=== PATIENT | female | born 2000 | race Caucasian/White ===

== ENCOUNTER 2021-06-02 05:27 | Emergency (ER) | payer MEDICAID, SELFPAY ==
--- NOTE | ~2021-06-02 | US_ITS ---
EXAMINATION: US FIRST TRIMESTER CLINICAL INFORMATION: Ectopic LMP: April 18, 2021 Beta-hCG: Unknown COMPARISON: None available. TECHNIQUE: Transabdominal imaging was performed. FINDINGS: No intrauterine gestational sac found. Endometrial thickness is 4 mm. OVARIES: Right: Normal Left: Normal FREE FLUID: None OTHER FINDINGS: None US/US OB <= 14 weeks fetus IMPRESSION: No intrauterine gestational sac found. In the right clinical setting CANNOT RULE OUT ECTOPIC. No adnexal mass or cyst found. (Referring physician staff is being called, to be alerted of the above findings and recommendations.) [place]
[2021-06-02 05:41] VITALS: BP 116/62; PULSE 115; RESP 16; TEMP 36.7; O2SAT 100
[2021-06-02 06:10] VITALS: BP 121/77; PULSE 104; RESP 16; O2SAT 99
--- NOTE | 2021-06-02 06:18 | ED_ITS ---
HPI - Female Genitourinary General Chief complaint: Urogenital-Female <Anamaria Ortiz MD - Last Filed: 06/02/21 06:56> Stated complaint: miscarriage <Anamaria Ortiz MD - Last Filed: 06/02/21 06:56> Time Seen by Provider: 06/02/21 06:15 <Anamaria Ortiz MD - Last Filed: 06/02/21 06:56> History of Present Illness HPI Narrative: Patient is a 20-year-old female last menstrual period was April 18. Presents today with having vaginal bleeding for the last 3 days. Soaking 2 pads in the last 24 hours. Minimal cramping. Patient is unsure of her blood type. 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 No fever no chills. No cough no congestion or upper respiratory symptoms. No diaphoresis. <Anamaria Ortiz MD - Last Filed: 06/02/21 06:56> Related Data Home medications: Previous Rx's Medication Instructions Recorded cefuroxime axetil 500 mg tablet 500 mg PO BID 10 Days #20 tab 06/02/21 ondansetron 4 mg disintegrating 4 mg PO Q8H PRN #20 tab 06/02/21 tablet <Anamaria Ortiz MD - Last Filed: 06/02/21 06:56> Allergies/Adverse reactions: Allergies Allergy/AdvReac Type Severity Reaction Status Date / Time No Known Allergies Allergy Verified 06/02/21 05:48 <Anamaria Ortiz MD - Last Filed: 06/02/21 06:56> Review of Systems Review of Systems: No fever no chills no chest pain or shortness of breath positive lower abdominal cramping <Anamaria Ortiz MD - Last Filed: 06/02/21 06:56> Yes all other systems are reviewed and are negative <Anamaria Ortiz MD - Last Filed: 06/02/21 06:56> [facility] Past Medical History Attestation statement: The following information was validated with the patient. <Anamaria Ortiz MD - Last Filed: 06/02/21 06:56> Social History Social History: Social History Alcohol intake: never Patient Tobacco Use Status: Never used Tobacco Use of substances other than those prescribed or required for medical reasons: No Advance Directives: No Advance Directives Information Provided: Yes Patient : Yes <Anamaria Ortiz MD - Last Filed: 06/02/21 06:56> Physical Exam Vital Signs: Vital Signs: Last Vital Signs Temp 99.2 F 06/02/21 09:35 Pulse 106 H 06/02/21 09:25 Resp 16 06/02/21 09:25 BP 108/58 L 06/02/21 09:25 Pulse Ox 98 06/02/21 09:25 BMI result Body Mass Index 20.0 Appearance: Alert. Oriented X3. No acute distress. Eyes: Pupils equal, round and reactive to light. ENT: Pharynx normal. Neck: Normal inspection. Neck supple. No lymph nodes noted. No crepitus CVS: Normal heart rate and rhythm. Pulses normal. Normal S1 and S2 Respiratory: No respiratory distress. Breath sounds normal. No Wheezing. No ra les Abdomen: Soft and nontender. No rigidity. No distention. good BS x4 Pelvic exam done with nursing present. There is small amount of blood in the vaginal vault. The cervical os was closed. Nontender. There is no adnexal tenderness elicited on palpation Skin: Skin warm and dry. Normal skin color. Normal skin turgor. Extremities: No lower extremity edema. Neurovascular intact to all extremities. No Lacerations. No Rash Neuro: Oriented X 3. No motor deficit. No sensory deficit. Moving all extermities. No slurred speech <Anamaria Ortiz MD - Last Filed: 06/02/21 06:56> Vital Signs: Last Vital Signs Temp 99.2 F 06/02/21 09:35 Pulse 106 H 06/02/21 09:25 Resp 16 06/02/21 09:25 BP 108/58 L 06/02/21 09:25 Pulse Ox 98 06/02/21 09:25 BMI result Body Mass Index 20.0 <Chastity York DO - Last Filed: 06/02/21 10:08> Course Course Course Narrative: sign out at 7am - patient with low grade temp per RN - tylenol, COVID/flu ordered - cultures, lactic acid and IV ceftriaxone for UTI ordered at this time 727am swabs ordered as well Rh negative - rhogam ordered VS stable, lactic acid negative, able to tolerate PO - can be managed as outpatient [facility] only 145 given rhogam patient feels safe and stable for DC - went over precautions to return <Chastity York DO - Last Filed: 06/02/21 10:08> MDM - Female Genitourinary Lab Data Result diagrams: : 06/02/21 06:43 06/02/21 06:43 <Anamaria Ortiz MD - Last Filed: 06/02/21 06:56> Labs: Lab Results 06/02/21 06/02/21 06/02/21 Range/Units 06:43 06:43 06:43 WBC 10.7 (4.8-10.8) X10*3/uL RBC 4.71 (4.20-5.50) X10*6/uL Hgb 13.2 (12.0-16.0) g/dl Hct 39.9 (37.0-47.0) % MCV 84.7 (80.0-98.0) fL MCH 28.0 (27.0-33.0) pg MCHC 33.1 (31.0-35.0) g/dl RDW 13.6 (11.0-16.0) % Plt Count 445 H (160-400) X10*3/uL MPV 8.5 L (9.4-12.3) fL Immature Gran % (Auto) 0.3 (0.0-0.4) % Neut % (Auto) 87.9 H (45-73) % Lymph % (Auto) 6.1 L (20-40) % [place] % (Auto) 5.4 (2-11) % Eos % (Auto) 0.2 (0-4) % Baso % (Auto) 0.1 (0-2) % Lymph # (Auto) 0.7 L (1.2-4.9) X10*3/uL [place] # (Auto) 0.6 (0.1-1.2) X10*3/uL Eos # (Auto) 0.0 (0.0-0.4) X10*3/uL Baso # (Auto) 0.0 (0.0-0.2) X10*3/uL Abs Immat Gran (auto) 0.03 (0.00-0.03) X10*3/uL Absolute Neuts (auto) 9.5 H (2.0-8.3) x10*3/uL Absolute Nucleated RBC 0.000 (0.0-0.012) X10*3/uL Nucleated RBC % (auto) 0.0 (0.0-0.2) /100WBC Sodium 138 (135-145) mmol/L Potassium 4.0 (3.3-5.1) mmol/L Chloride 105 (96-108) mmol/L Carbon Dioxide 23 (22-29) mmol/L Anion Gap 14 (12-20) BUN 11 (9-16) mg/dL Creatinine 0.73 (0.5-1.4) mg/dL Estim Creat Clear Calc 83.1 Estimated GFR > 60 Random Glucose 109 (60-115) mg/dL Lactic Acid (0.5-2.0) mmol/L Calcium 10.2 (8.4-10.2) mg/dL Total Bilirubin 1.1 H (0.0-1.0) mg/dL AST 19 (5-31) U/L ALT 15 (0-31) U/L Alkaline Phosphatase 70 (39-117) U/L Total Protein 8.9 H (6.5-8.0) g/dL Albumin 5.3 H (3.5-5.0) g/dL Lipase 22 (8-78) U/L Beta HCG, Quant 145 mIU/mL Urine Color Urine Appearance Urine pH (5.0-8.0) Ur Specific [place] (1.005-1.025) Urine Protein (NEG-TRACE) MG/DL Urine Glucose (UA) (NEG) MG/DL Urine Ketones (NEG) MG/DL Urine Blood (NEG) Urine Nitrite (NEG) Ur Leukocyte Esterase (NEG) Urine RBC (0) /HPF Urine WBC (0-4) /HPF Ur Squamous Epith Cells /LPF Urine Bacteria /LPF COVID-19 (RENE) (Negative) COVID-19 Clin Com Influenza Type A (LI) (Negative) Influenza Type B (LI) (Negative) Influenza A & B Note Blood Type O Negative 06/02/21 06/02/21 06/02/21 Range/Units 06:53 07:37 07:37 WBC (4.8-10.8) X10*3/uL RBC (4.20-5.50) X10*6/uL Hgb (12.0-16.0) g/dl Hct (37.0-47.0) % MCV (80.0-98.0) fL MCH (27.0-33.0) pg MCHC (31.0-35.0) g/dl RDW (11.0-16.0) % Plt Count (160-400) X10*3/uL MPV (9.4-12.3) fL Immature Gran % (Auto) (0.0-0.4) % Neut % (Auto) (45-73) % Lymph % (Auto) (20-40) % [place] % (Auto) (2-11) % Eos % (Auto) (0-4) % Baso % (Auto) (0-2) % Lymph # (Auto) (1.2-4.9) X10*3/uL [place] # (Auto) (0.1-1.2) X10*3/uL Eos # (Auto) (0.0-0.4) X10*3/uL Baso # (Auto) (0.0-0.2) X10*3/uL Abs Immat Gran (auto) (0.00-0.03) X10*3/uL Absolute Neuts (auto) (2.0-8.3) x10*3/uL Absolute Nucleated RBC (0.0-0.012) X10*3/uL Nucleated RBC % (auto) (0.0-0.2) /100WBC Sodium (135-145) mmol/L Potassium (3.3-5.1) mmol/L Chloride (96-108) mmol/L Carbon Dioxide (22-29) mmol/L Anion Gap (12-20) BUN (9-16) mg/dL Creatinine (0.5-1.4) mg/dL Estim Creat Clear Calc Estimated GFR Random Glucose (60-115) mg/dL Lactic Acid (0.5-2.0) mmol/L Calcium (8.4-10.2) mg/dL Total Bilirubin (0.0-1.0) mg/dL AST (5-31) U/L ALT (0-31) U/L Alkaline Phosphatase (39-117) U/L Total Protein (6.5-8.0) g/dL Albumin (3.5-5.0) g/dL Lipase (8-78) U/L Beta HCG, Quant mIU/mL Urine Color RED A Urine Appearance TURBID Urine pH 6.5 (5.0-8.0) Ur Specific [place] 1.025 (1.005-1.025) Urine Protein 3+ H (NEG-TRACE) MG/DL Urine Glucose (UA) NEG (NEG) MG/DL Urine Ketones 5 (NEG) MG/DL Urine Blood 3+ H (NEG) Urine Nitrite POS H (NEG) Ur Leukocyte Esterase TRACE H (NEG) Urine RBC TNTC H (0) /HPF Urine WBC 5-9 H (0-4) /HPF Ur Squamous Epith Cells TRACE /LPF Urine Bacteria TRACE /LPF COVID-19 (RENE) Negative (Negative) COVID-19 Clin Com See Note Influenza Type A (LI) Negative (Negative) Influenza Type B (LI) Negative (Negative) Influenza A & B Note See Note Blood Type 06/02/21 Range/Units 07:46 WBC (4.8-10.8) X10*3/uL RBC (4.20-5.50) X10*6/uL Hgb (12.0-16.0) g/dl Hct (37.0-47.0) % MCV (80.0-98.0) fL MCH (27.0-33.0) pg MCHC (31.0-35.0) g/dl RDW (11.0-16.0) % Plt Count (160-400) X10*3/uL MPV (9.4-12.3) fL Immature Gran % (Auto) (0.0-0.4) % Neut % (Auto) (45-73) % Lymph % (Auto) (20-40) % [place] % (Auto) (2-11) % Eos % (Auto) (0-4) % Baso % (Auto) (0-2) % Lymph # (Auto) (1.2-4.9) X10*3/uL [place] # (Auto) (0.1-1.2) X10*3/uL Eos # (Auto) (0.0-0.4) X10*3/uL Baso # (Auto) (0.0-0.2) X10*3/uL Abs Immat Gran (auto) (0.00-0.03) X10*3/uL Absolute Neuts (auto) (2.0-8.3) x10*3/uL Absolute Nucleated RBC (0.0-0.012) X10*3/uL Nucleated RBC % (auto) (0.0-0.2) /100WBC Sodium (135-145) mmol/L Potassium (3.3-5.1) mmol/L Chloride (96-108) mmol/L Carbon Dioxide (22-29) mmol/L Anion Gap (12-20) BUN (9-16) mg/dL Creatinine (0.5-1.4) mg/dL Estim Creat Clear Calc Estimated GFR Random Glucose (60-115) mg/dL Lactic Acid 1.0 (0.5-2.0) mmol/L Calcium (8.4-10.2) mg/dL Total Bilirubin (0.0-1.0) mg/dL AST (5-31) U/L ALT (0-31) U/L Alkaline Phosphatase (39-117) U/L Total Protein (6.5-8.0) g/dL Albumin (3.5-5.0) g/dL Lipase (8-78) U/L Beta HCG, Quant mIU/mL Urine Color Urine Appearance Urine pH (5.0-8.0) Ur Specific [place] (1.005-1.025) Urine Protein (NEG-TRACE) MG/DL Urine Glucose (UA) (NEG) MG/DL Urine Ketones (NEG) MG/DL Urine Blood (NEG) Urine Nitrite (NEG) Ur Leukocyte Esterase (NEG) Urine RBC (0) /HPF Urine WBC (0-4) /HPF Ur Squamous Epith Cells /LPF Urine Bacteria /LPF COVID-19 (RENE) (Negative) COVID-19 Clin Com Influenza Type A (LI) (Negative) Influenza Type B (LI) (Negative) Influenza A & B Note Blood Type <Anamaria Ortiz MD - Last Filed: 06/02/21 06:56> Lab Results 06/02/21 06/02/21 06/02/21 Range/Units 06:43 06:43 06:43 WBC 10.7 (4.8-10.8) X10*3/uL RBC 4.71 (4.20-5.50) X10*6/uL Hgb 13.2 (12.0-16.0) g/dl Hct 39.9 (37.0-47.0) % MCV 84.7 (80.0-98.0) fL MCH 28.0 (27.0-33.0) pg MCHC 33.1 (31.0-35.0) g/dl RDW 13.6 (11.0-16.0) % Plt Count 445 H (160-400) X10*3/uL MPV 8.5 L (9.4-12.3) fL Immature Gran % (Auto) 0.3 (0.0-0.4) % Neut % (Auto) 87.9 H (45-73) % Lymph % (Auto) 6.1 L (20-40) % [place] % (Auto) 5.4 (2-11) % Eos % (Auto) 0.2 (0-4) % Baso % (Auto) 0.1 (0-2) % Lymph # (Auto) 0.7 L (1.2-4.9) X10*3/uL [place] # (Auto) 0.6 (0.1-1.2) X10*3/uL Eos # (Auto) 0.0 (0.0-0.4) X10*3/uL Baso # (Auto) 0.0 (0.0-0.2) X10*3/uL Abs Immat Gran (auto) 0.03 (0.00-0.03) X10*3/uL Absolute Neuts (auto) 9.5 H (2.0-8.3) x10*3/uL Absolute Nucleated RBC 0.000 (0.0-0.012) X10*3/uL Nucleated RBC % (auto) 0.0 (0.0-0.2) /100WBC Sodium 138 (135-145) mmol/L Potassium 4.0 (3.3-5.1) mmol/L Chloride 105 (96-108) mmol/L Carbon Dioxide 23 (22-29) mmol/L Anion Gap 14 (12-20) BUN 11 (9-16) mg/dL Creatinine 0.73 (0.5-1.4) mg/dL Estim Creat Clear Calc 83.1 Estimated GFR > 60 Random Glucose 109 (60-115) mg/dL Lactic Acid (0.5-2.0) mmol/L Calcium 10.2 (8.4-10.2) mg/dL Total Bilirubin 1.1 H (0.0-1.0) mg/dL AST 19 (5-31) U/L ALT 15 (0-31) U/L Alkaline Phosphatase 70 (39-117) U/L Total Protein 8.9 H (6.5-8.0) g/dL Albumin 5.3 H (3.5-5.0) g/dL Lipase 22 (8-78) U/L Beta HCG, Quant 145 mIU/mL Urine Color Urine Appearance Urine pH (5.0-8.0) Ur Specific [place] (1.005-1.025) Urine Protein (NEG-TRACE) MG/DL Urine Glucose (UA) (NEG) MG/DL Urine Ketones (NEG) MG/DL Urine Blood (NEG) Urine Nitrite (NEG) Ur Leukocyte Esterase (NEG) Urine RBC (0) /HPF Urine WBC (0-4) /HPF Ur Squamous Epith Cells /LPF Urine Bacteria /LPF COVID-19 (RENE) (Negative) COVID-19 Clin Com Influenza Type A (LI) (Negative) Influenza Type B (LI) (Negative) Influenza A & B Note Blood Type O Negative 06/02/21 06/02/21 06/02/21 Range/Units 06:53 07:37 07:37 WBC (4.8-10.8) X10*3/uL RBC (4.20-5.50) X10*6/uL Hgb (12.0-16.0) g/dl Hct (37.0-47.0) % MCV (80.0-98.0) fL MCH (27.0-33.0) pg MCHC (31.0-35.0) g/dl RDW (11.0-16.0) % Plt Count (160-400) X10*3/uL MPV (9.4-12.3) fL Immature Gran % (Auto) (0.0-0.4) % Neut % (Auto) (45-73) % Lymph % (Auto) (20-40) % [place] % (Auto) (2-11) % Eos % (Auto) (0-4) % Baso % (Auto) (0-2) % Lymph # (Auto) (1.2-4.9) X10*3/uL [place] # (Auto) (0.1-1.2) X10*3/uL Eos # (Auto) (0.0-0.4) X10*3/uL Baso # (Auto) (0.0-0.2) X10*3/uL Abs Immat Gran (auto) (0.00-0.03) X10*3/uL Absolute Neuts (auto) (2.0-8.3) x10*3/uL Absolute Nucleated RBC (0.0-0.012) X10*3/uL Nucleated RBC % (auto) (0.0-0.2) /100WBC Sodium (135-145) mmol/L Potassium (3.3-5.1) mmol/L Chloride (96-108) mmol/L Carbon Dioxide (22-29) mmol/L Anion Gap (12-20) BUN (9-16) mg/dL Creatinine (0.5-1.4) mg/dL Estim Creat Clear Calc Estimated GFR Random Glucose (60-115) mg/dL Lactic Acid (0.5-2.0) mmol/L Calcium (8.4-10.2) mg/dL Total Bilirubin (0.0-1.0) mg/dL AST (5-31) U/L ALT (0-31) U/L Alkaline Phosphatase (39-117) U/L Total Protein (6.5-8.0) g/dL Albumin (3.5-5.0) g/dL Lipase (8-78) U/L Beta HCG, Quant mIU/mL Urine Color RED A Urine Appearance TURBID Urine pH 6.5 (5.0-8.0) Ur Specific [place] 1.025 (1.005-1.025) Urine Protein 3+ H (NEG-TRACE) MG/DL Urine Glucose (UA) NEG (NEG) MG/DL Urine Ketones 5 (NEG) MG/DL Urine Blood 3+ H (NEG) Urine Nitrite POS H (NEG) Ur Leukocyte Esterase TRACE H (NEG) Urine RBC TNTC H (0) /HPF Urine WBC 5-9 H (0-4) /HPF Ur Squamous Epith Cells TRACE /LPF Urine Bacteria TRACE /LPF COVID-19 (RENE) Negative (Negative) COVID-19 Clin Com See Note Influenza Type A (LI) Negative (Negative) Influenza Type B (LI) Negative (Negative) Influenza A & B Note See Note Blood Type 06/02/21 Range/Units 07:46 WBC (4.8-10.8) X10*3/uL RBC (4.20-5.50) X10*6/uL Hgb (12.0-16.0) g/dl Hct (37.0-47.0) % MCV (80.0-98.0) fL MCH (27.0-33.0) pg MCHC (31.0-35.0) g/dl RDW (11.0-16.0) % Plt Count (160-400) X10*3/uL MPV (9.4-12.3) fL Immature Gran % (Auto) (0.0-0.4) % Neut % (Auto) (45-73) % Lymph % (Auto) (20-40) % [place] % (Auto) (2-11) % Eos % (Auto) (0-4) % Baso % (Auto) (0-2) % Lymph # (Auto) (1.2-4.9) X10*3/uL [place] # (Auto) (0.1-1.2) X10*3/uL Eos # (Auto) (0.0-0.4) X10*3/uL Baso # (Auto) (0.0-0.2) X10*3/uL Abs Immat Gran (auto) (0.00-0.03) X10*3/uL Absolute Neuts (auto) (2.0-8.3) x10*3/uL Absolute Nucleated RBC (0.0-0.012) X10*3/uL Nucleated RBC % (auto) (0.0-0.2) /100WBC Sodium (135-145) mmol/L Potassium (3.3-5.1) mmol/L Chloride (96-108) mmol/L Carbon Dioxide (22-29) mmol/L Anion Gap (12-20) BUN (9-16) mg/dL Creatinine (0.5-1.4) mg/dL Estim Creat Clear Calc Estimated GFR Random Glucose (60-115) mg/dL Lactic Acid 1.0 (0.5-2.0) mmol/L Calcium (8.4-10.2) mg/dL Total Bilirubin (0.0-1.0) mg/dL AST (5-31) U/L ALT (0-31) U/L Alkaline Phosphatase (39-117) U/L Total Protein (6.5-8.0) g/dL Albumin (3.5-5.0) g/dL Lipase (8-78) U/L Beta HCG, Quant mIU/mL Urine Color Urine Appearance Urine pH (5.0-8.0) Ur Specific [place] (1.005-1.025) Urine Protein (NEG-TRACE) MG/DL Urine Glucose (UA) (NEG) MG/DL Urine Ketones (NEG) MG/DL Urine Blood (NEG) Urine Nitrite (NEG) Ur Leukocyte Esterase (NEG) Urine RBC (0) /HPF Urine WBC (0-4) /HPF Ur Squamous Epith Cells /LPF Urine Bacteria /LPF COVID-19 (RENE) (Negative) COVID-19 Clin Com Influenza Type A (LI) (Negative) Influenza Type B (LI) (Negative) Influenza A & B Note Blood Type <Chastity York DO - Last Filed: 06/02/21 10:08> Discharge Plan Discharge Clinical Impression: Miscarriage Urinary tract infection Qualifiers: Urinary tract infection type: acute pyelonephritis Qualified Code(s): N10 - Acute pyelonephritis <Anamaria Ortiz MD - Last Filed: 06/02/21 06:56> Patient Disposition: Home, Self-Care <Anamaria Ortiz MD - Last Filed: 06/02/21 06:56> Instructions: Miscarriage (ED), Kidney Infection (ED) <nAamaria Ortiz MD - Last Filed: 06/02/21 06:56> Additional Instructions: return to ED for any worsening symptoms or concerns return for worsening bleeding, clots the size of golf balls, dizziness/weakness, vomiting, high fevers, worsening pain, unable to take oral antibiotics TECHNIQUE: Transabdominal imaging was performed. FINDINGS:? No intrauterine gestational sac found. Endometrial thickness is 4 mm. OVARIES: Right: Normal Left: Normal FREE FLUID: None OTHER FINDINGS: None US/US OB <= 14 weeks fetus IMPRESSION: No intrauterine gestational sac found. In the right clinical setting CANNOT RULE OUT ECTOPIC. ? No adnexal mass or cyst found. ? (Referring physician staff is being called, to be alerted of the above findings and recommendations.) ? SM BLOOD TYPE NEGATIVE you were given rhogam in the ED you were tested for gonorrhea and chlamydia those tests are pending we will call you if positive keep your appointment tomorrow to get your quant levels checked to make sure they are going down this is important that they are trending down HCG LEVEL WAS 145 <Anamaria Ortiz MD - Last Filed: 06/02/21 06:56> Prescriptions: New ondansetron 4 mg tablet,disintegrating 4 mg PO Q8H PRN (Reason: nausea and vomiting) Qty: 20 0RF cefuroxime axetil 500 mg tablet 500 mg PO BID 10 Days Qty: 20 0RF <Anamaria Ortiz MD - Last Filed: 06/02/21 06:56> Stand Alone Forms: Work/School Release <Anamaria Ortiz MD - Last Filed: 06/02/21 06:56>
[2021-06-02 07:03] VITALS: BP 120/72; PULSE 110; RESP 16; TEMP 38.1; O2SAT 100
[2021-06-02 07:07] LABS: MANUAL DIFF FLAG NO
[2021-06-02 07:20] LABS: Appearance Urine TURBID; Color Urine RED; Glucose Urine UA NEG (NEG); Leukocyte Esterase Urine TRACE (NEG); Nitrite Urine POS (NEG); PH 6.5 (5.0-8.0); UACC Culture Trigger YES; Urine Blood 3+ (NEG); Urine Ketones 5 MG/DL (NEG); Urine Protein 3+ MG/DL (NEG-TRACE)
[2021-06-02 07:23] LABS: Specific Gravity - Urine 1.025 (1.005-1.025)
[2021-06-02 07:25] LABS: Basophils Percent Auto 0.1 % (0-2); Eosinophils Percent Auto 0.2 % (0-4); Hematocrit 39.9 % (37.0-47.0); Hemoglobin 13.2 g/dl (12.0-16.0); Imm Gran Abs Auto 0.03 X10*3/uL (0.00-0.03); Imm Gran Pct Auto 0.3 % (0.0-0.4); Lymphocytes Absolute Auto 0.7 X10*3/uL (1.2-4.9); Lymphocytes Percent Auto 6.1 % (20-40); Mean Corpuscular HGB Conc 33.1 g/dl (31.0-35.0); Mean Corpuscular Volume 84.7 fL (80.0-98.0); Mean Platelet Volume 8.5 fL (9.4-12.3); Monocytes Absolute Auto 0.6 X10*3/uL (0.1-1.2); Monocytes Percent Auto 5.4 % (2-11); Neutrophils Absolute Auto 9.5 x10*3/uL (2.0-8.3); Neutrophils Percent Auto 87.9 % (45-73); Platelet Count 445 X10*3/uL (160-400); Red Blood Count 4.71 X10*6/uL (4.20-5.50); Red Cell Distribution Width 13.6 % (11.0-16.0); White Blood Count 10.7 X10*3/uL (4.8-10.8)
[2021-06-02] MEDS: Acetaminophen 325 MG TABLET 650 MG PO (07:28)
[2021-06-02 07:33] LABS: Alanine Aminotransferase 15 U/L (0-31); Albumin Level 5.3 g/dL (3.5-5.0); Alkaline Phosphatase 70 U/L (39-117); Anion Gap 14 (12-20); Aspartate Amino Transferase 19 U/L (5-31); Bilirubin Total 1.1 mg/dL (0.0-1.0); Blood Urea Nitrogen 11 mg/dL (9-16); Calcium 10.2 mg/dL (8.4-10.2); Carbon Dioxide 23 mmol/L (22-29); Chloride 105 mmol/L (96-108); Creatinine Clr Calc Pharmacy 83.1; Estimated Glomerular Filt Rate > 60; Glucose Random 109 mg/dL (60-115); Lipase 22 U/L (8-78); Sodium 138 mmol/L (135-145); Total Protein 8.9 g/dL (6.5-8.0)
[2021-06-02 07:39] LABS: Bacteria Urine TRACE /LPF; RBC Urine TNTC /HPF (0); Squamous Epithelial Cell Urine TRACE /LPF
[2021-06-02 07:42] LABS: HCG Quantitative 145 mIU/mL
[2021-06-02] MEDS: cefTRIAXone sodium 1 GM in 0.9 % Sodium Chloride 50 ML IV (07:51)
[2021-06-02 08:36] LABS: COVID-19 Test Negative (Negative); IDNOW Serial# 16C4AD1C; Influenza A Negative (Negative); Influenza B2 Negative (Negative)
[2021-06-02 09:25] VITALS: BP 108/58; PULSE 106; RESP 16; TEMP 37.2; O2SAT 98
[2021-06-02] MEDS: Rho(D) Immune Globulin 300 MCG SYRINGE IM (09:33)
[2021-06-02 09:35] VITALS: TEMP 37.3
[2021-06-02 10:04] LABS: CT PCR NOT DETECTED (Not Detect.); NG PCR NOT DETECTED (Not Detect.)
[2021-06-02 10:31] VITALS: BP 101/55; PULSE 110; RESP 14; TEMP 37.3; O2SAT 99
== END 2021-06-02 10:42 | disposition home or self-care (01) ==
PROVIDERS: Emergency Medicine Emergency Medical Services; Emergency Provider Emergency Medicine
DX: O03.9 Complete or unspecified spontaneous abortion without complication (principal); N10 Acute pyelonephritis; Z20.822 Contact with and (suspected) exposure to COVID-19; Z79.899 Other long term (current) drug therapy
CPT/HCPCS: 36415; 76801; 80053; 81001; 83605; 83690; 84702; 85025; 86900; 86901; 87040; 87086; 87491; 87502; 87591; 87635; 96365; 96372; 99284; 99285; J0696; J2790

== ENCOUNTER 2023-10-19 09:00 | Outpatient (REF) | payer OTHER, SELFPAY ==
--- NOTE | ~2023-10-19 | XR_ITS ---
EXAMINATION: XR ANKLE, RIGHT CLINICAL INFORMATION: Right ankle pain. Joints of the right foot. COMPARISON: None available. TECHNIQUE: AP, lateral, and mortise views of the right ankle. FINDINGS: No fracture. Alignment is anatomic. No erosions. Joint spaces are maintained. Soft tissues are normal. XR/XR ankle RT min 3V IMPRESSION: Normal right ankle. Electronically signed by: Barrera Jalloh MD 11/01/2023 11:45 PM EDT
== END 2023-10-19 09:01 | disposition home or self-care (01) ==
LOC: HO.XRAY 09:00
PROVIDERS: PCP Nurse Practitioner Family; Visit Provider Physician Assistant
DX: M25.571 Pain in right ankle and joints of right foot (principal)
CPT/HCPCS: 73610; 99202

== ENCOUNTER 2023-10-19 11:19 | Outpatient (AMB) | payer OTHER, SELFPAY ==
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
== END 2023-10-19 11:49 | disposition home or self-care (01) ==
PROVIDERS: PCP Nurse Practitioner Family; Visit Provider Physician Assistant
DX: S92.354D Nondisplaced fracture of fifth metatarsal bone, right foot, subsequent encounter for fracture with routine healing (principal)
CPT/HCPCS: 99204; G2211

== ENCOUNTER 2023-11-08 17:00 | Outpatient (RCR) | payer OTHER, SELFPAY ==
--- NOTE | 2023-10-21 18:08 | MHC.PT.EP ---
[facility] [place] Office [place] Office [place] Office [address] Debbie Walker [address] [phone] F: [phone] F: [phone] F: [phone] F: [phone] Physical Therapy Plan of Care Date of Evaluation: 10/21/23 Date of Surgery: Diagnosis: Non displaced fracture of 5th RIGHT metatarsal bone (routine healing) (RS) Assessment: Patient is a pleasant 23 y.o. female who is referred to PT by Sheri Campos PA-C with Dx of Non displaced fracture of 5th RIGHT metatarsal bone (routine healing). Patient impairments include localized pain and swelling, limited ankle ROM, weakness R ankle/foot, antalgic gait. Patient current functional limitations are Walking on level and unlevel surfaces, stair use, squat, kneel, standing for work tasks. Patient will benefit from skilled PT to address aforementioned impairments and functional limitations to meet established goals. Frequency and Duration: The patient will be seen 2x/week for 4 weeks Short Term Goals: 2 weeks Patient demonstrates consistency and independence with HEP to self manage symptoms. Snf Goals: 4 weeks Patient presents with increased R ankle DF 5 degrees to normalize gait pattern with ambulation. Patient presents with increased R ankle eversion strength 5/5 to be able to stand for prolonged period of time at work. Treatment Plan: Modalities to reduce pain, spasms and effusion. Manual therapy to restore motion and function. Therapeutic exercise to improve strength and flexibility. Neuromuscular re-education for posture and balance. Therapeutic activities to return to functional activities of daily living. Electronically signed by: Kenneth Benites, PT, DPT Please sign and return to therapist. Thank you for your referral.
--- NOTE | 2023-12-31 09:50 | MHC.PT.DC ---
[facility] [place] Office [place] Office [place] Office [address] Debbie Walker [address] [phone] F: [phone] F: [phone] F: [phone] F: [phone] Physical Therapy Discharge Report Diagnosis: Non displaced fracture of 5th RIGHT metatarsal bone (routine healing) (RS) Date of Surgery: Date of Evaluation: 10/21/23 Date of Discharge: 12/31/23 Treatments to Date: 4 Cancellations to Date: 3 No Shows to Date: 2 Discharge Status: Improved Function Independent with HEP Patient Elected to Stop Discharge Summary: La did well with PT interventions, was last treated on 11/08/23. She cancelled or did not show to any scheduled visits after that and is therefore discharged from PT. Electronically signed by: Kenneth Benites, PT, DPT Please sign and return to therapist. Thank you for your referral.
== END 2023-12-31 09:50 | disposition home or self-care (01) ==
LOC: HO.PT 17:00
PROVIDERS: PCP Nurse Practitioner Family; Visit Provider Physician Assistant
DX: S92.354D Nondisplaced fracture of fifth metatarsal bone, right foot, subsequent encounter for fracture with routine healing (principal)
CPT/HCPCS: 97110; 97161; 97530

== ENCOUNTER 2023-11-23 12:40 | Outpatient (REF) | payer OTHER, SELFPAY | END 2023-11-23 12:41 | disposition home or self-care (01) | LOC: HO.HOSX 12:40 | PROVIDERS: Visit Provider Physician Assistant | DX: Z13.89 Encounter for screening for other disorder (principal) ==